=== PATIENT | male | born 1995 | race Caucasian/White ===

== ENCOUNTER → 2017-10-25 | Day surgery (SDC) | payer OTHER ==
--- NOTE | 2017-10-25 15:31 | RADIOLOGY REPORT (SQ) ---
EXAM DESCRIPTION: ARTHRO SHOULDER INJECTION; FLUORO/NEEDLE PLACEMENT COMPLETED DATE/TIME: 10/25/2017 3:17 pm REASON FOR STUDY: RIGHT SHOULDER PAIN COMPARISON: None. FLUOROSCOPY TIME: 9 seconds 1 image saved to PACS. LIMITATIONS: None. PROCEDURE: Procedure, risks, benefits and alternatives explained to patient who then gave written co nsent. The posterior right glenohumeral joint was marked and a time out was called for correct proced ure verification. Posterior entry site marked using fluoroscopic guidance. Shoulder prepped and karen ped using sterile technique. Local anesthesia achieved using 6 mL of 1% lidocaine injection. 22 gau ge spinal needle introduced into the joint space under direct fluoroscopic visualization. Non-ionic c ontrast instilled to confirm intra-articular position. Dilute gadolinium solution then injected. Nee dle removed and entry site covered with sterile bandage. No immediate complications noted. TECHNIQUE: Digital images acquired during fluoroscopy and stored on PACS. Patient immediately take n to the MR suite for additional imaging. INJECTION LOCATION: Right posterior glenohumeral joint CONTRAST TYPE AND AMOUNT: 1 mL of Isovue-300 was injected to confirm intra-articular needle placement followed by 10 mL of dilute Prohance/Saline mixture. IMPRESSION: SUCCESSFUL NEEDLE PLACEMENT AND INJECTION FOR RIGHT SHOULDER MR ARTHROGRAM USING POSTERI OR APPROACH. COMMENT: Quality ID [id number]: Final reports for procedures using fluoroscopy that document radiation exp osure indices, or exposure time and number of fluorographic images (if radiation exposure indices are not available) TECHNICAL DOCUMENTATION: JOB ID: [id number]- All Rights Reserved Reading location - IP/workstation name: [facility]
--- NOTE | 2017-10-25 15:31 | RADIOLOGY REPORT (SQ) ---
EXAM DESCRIPTION: ARTHRO SHOULDER INJECTION; FLUORO/NEEDLE PLACEMENT COMPLETED DATE/TIME: 10/25/2017 3:17 pm REASON FOR STUDY: RIGHT SHOULDER PAIN COMPARISON: None. FLUOROSCOPY TIME: 9 seconds 1 image saved to PACS. LIMITATIONS: None. PROCEDURE: Procedure, risks, benefits and alternatives explained to patient who then gave written co nsent. The posterior right glenohumeral joint was marked and a time out was called for correct proced ure verification. Posterior entry site marked using fluoroscopic guidance. Shoulder prepped and karen ped using sterile technique. Local anesthesia achieved using 6 mL of 1% lidocaine injection. 22 gau ge spinal needle introduced into the joint space under direct fluoroscopic visualization. Non-ionic c ontrast instilled to confirm intra-articular position. Dilute gadolinium solution then injected. Nee dle removed and entry site covered with sterile bandage. No immediate complications noted. TECHNIQUE: Digital images acquired during fluoroscopy and stored on PACS. Patient immediately take n to the MR suite for additional imaging. INJECTION LOCATION: Right posterior glenohumeral joint CONTRAST TYPE AND AMOUNT: 1 mL of Isovue-300 was injected to confirm intra-articular needle placement followed by 10 mL of dilute Prohance/Saline mixture. IMPRESSION: SUCCESSFUL NEEDLE PLACEMENT AND INJECTION FOR RIGHT SHOULDER MR ARTHROGRAM USING POSTERI OR APPROACH. COMMENT: Quality ID 145: Final reports for procedures using fluoroscopy that document radiation exp osure indices, or exposure time and number of fluorographic images (if radiation exposure indices are not available) TECHNICAL DOCUMENTATION: JOB ID: [id number] [employer]- All Rights Reserved Reading location - IP/workstation name: [facility]
--- NOTE | 2017-10-25 16:37 | RADIOLOGY REPORT (SQ) ---
EXAM DESCRIPTION: MRI RT UPPER JOINT WITH COMPLETED DATE/TIME: 10/25/2017 4:04 pm REASON FOR STUDY: RIGHT SHOULDER PAIN COMPARISON: None. TECHNIQUE: Right shoulder images acquired and stored on PACS. Oblique coronal, oblique sagittal, and axial imaging to include fat sensitive sequences as T1, water sensitive sequences as FST2/STIR, and contrast sensitive sequences as FST1. LIMITATIONS: None. FINDINGS: JOINT DISTENTION: Adequate distention for interpretation. No leakage of contrast into the subacromial/subdeltoid bursa. BONE MARROW AND CORTEX: Subcortical cysts along the greater tuberosity deep to the supraspinatus tend on. There is an old Hill-Sachs deformity in the posterior right humeral head on axial image 9 AC JOINT: Type II acromion. Mild acromioclavicular joint arthropathy with bony spurring. There is fl uid in the AC joint with edema in the distal clavicle bone marrow. GLENOHUMERAL JOINT: No subluxation or dislocation. No focal chondral defects or reactive bone changes . ROTATOR CUFF: Intact without significant tendinopathy, partial or full-thickness tears. No peritendin itis. LABRUM AND BICEPS LABRAL COMPLEX: There is a superior labral tear at the long head biceps tendon inse rtion extending throughout the anterior labrum. The labrum and periosteum are lifted off of the ante rior bony glenoid without out bony Bankart lesion. These changes are best shown on axial images 10 t hrough 13. INFERIOR LABRAL COMPLEX: Bony glenoid and labrum intact. IGHL intact without thickening or tear. No p aralabral cysts. ADJACENT SOFT TISSUES: No masses or nodes. OTHER: No other significant finding. IMPRESSION: Diffuse anterior labral tear No bony Bankart lesion Old right humeral head Hill-Sachs deformity Arthropathy at the AC joint TECHNICAL DOCUMENTATION: JOB ID: [id number] [employer]- All Rights Reserved Reading location - IP/workstation name: [email or web address]
== END ==
LOC: RAD 14:41
PROVIDERS: ATTEND Physical Therapist
DX: M25.511 Pain in right shoulder (principal); M25.311 Other instability, right shoulder
CPT/HCPCS: 73222; 77002; 23350; A9576